=== PATIENT | male | born 1980 | race Two or more races ===

== ENCOUNTER 2021-11-18 19:18 | Emergency (ER) | payer OTHER ==
[2021-11-18 19:18] VITALS: BP 138/92
[2021-11-18] MEDS ORDERED: KETOROLAC TROMETH 60MG/2ML VIAL IM ONE (22:30)
== END 2021-11-18 23:09 | disposition home or self-care (01) ==
LOC: ER 19:18
DX: M25.562 Pain in left knee (principal); X58.XXXA Exposure to other specified factors, initial encounter; Y93.89 Activity, other specified; Y92.89 Other specified places as the place of occurrence of the external cause; Y99.8 Other external cause status
CPT/HCPCS: 73562; 96372; 99283; J1885